=== PATIENT | male | born 1965 | race African-American/Black ===

== ENCOUNTER 2017-12-19 05:56 | Emergency (ER) | payer OTHER ==
[~2017-12-19] VITALS: Ht 165.1 cm; Wt 73.9 kg
[~2017-12-19 05:56] MED LIST: CIPRO500 MG PO; ENALAPRIL MALEAT5 MG; PYRIDIUM100 M1 PO; TORADOL30 MG; ULTRACET PO
[2017-12-19] MEDS ORDERED: PROPRANOLOL HCL10 MG (06:43)
== END 2017-12-19 10:30 | disposition home or self-care (01) ==
LOC: ER 05:56
DX: M54.32 Sciatica, left side (principal)